=== PATIENT | female | born 1970 | race Caucasian/White ===

== ENCOUNTER 2022-09-26 08:15 | Outpatient (OUT) | payer OTHER, SELFPAY ==
--- NOTE | 2022-09-26 08:45 | MM_ITS ---
Patient: PRASANTH THOMAS Exam Date: 09/26/2022 : 1970 Gender:F Ordering : DR JEANETTE WEEMS M.D. Admission #: [id number] Family : Order #: [id number] CLICK HERE TO VIEW EXAM RADIOLOGY REPORT PROCEDURE: MM TOMOSYNTHESIS SCREENING BI COMPARISON: MG MAMM SCREEN 3D DASHA CAD, 07/19/2021. MG MAMM SCREEN DASHA W CAD, 01/21/2020. MG MAMM SCREEN DASHA W CAD, 01/15/2019. MG MAMM DASHA SCRN W CAD DIG, 10/03/2005. INDICATIONS: Screening Calculator Name NCI Breast Cancer Risk Assessment Tool 5 Year Breast Cancer Risk 1.90% Lifetime Breast Cancer Risk 15.30% Personal Breast Cancer No Personal Ovarian Cancer No Treatments None Family Cancers Aunt-maternal with breast cancer at age 50; Aunt-maternal with bone cancer at age 60. LOCATION: [facility] BREAST COMPOSITION: Scattered areas fibroglandular density. FINDINGS: DIAGNOSTIC CATEGORY 2--BENIGN FINDING: RIGHT BREAST: No significant suspicious finding. Stable chronic mass within lower-outer quadrant with adjacent biopsy marker clip. No significant change has occurred. LEFT BREAST: No significant suspicious finding. No significant change has occurred. RECOMMENDATIONS: ROUTINE MAMMOGRAM AND CLINICAL EVALUATION IN 12 MONTHS. PLEASE NOTE: A NORMAL MAMMOGRAM DOES NOT EXCLUDE THE POSSIBILITY OF BREAST CANCER. A CLINICALLY SUSPICIOUS PALPABLE LUMP SHOULD BE BIOPSIED. Dictated by: Sunday Butt M.D. on 09/26/2022 at 11:40 Approved by: Sunday Butt M.D. on 09/26/2022 at 11:49
== END 2022-09-26 08:16 | disposition home or self-care (01) ==
LOC: MAMMO 08:15
PROVIDERS: PCP Internal Medicine; Visit Provider Internal Medicine
DX: Z12.31 Encounter for screening mammogram for malignant neoplasm of breast (principal); Z80.3 Family history of malignant neoplasm of breast; N63.13 Unspecified lump in the right breast, lower outer quadrant
CPT/HCPCS: 77063; 77067

== ENCOUNTER 2023-09-29 08:27 | Outpatient (OUT) | payer OTHER, SELFPAY ==
--- NOTE | 2023-09-29 08:32 | MM_ITS ---
Patient Name: PRASANTH THOMAS MR#: [id number] : 1970 Exam Date: 09/29/2023 Ordering Doctor: DR JEANETTE WEEMS M.D. RADIOLOGY REPORT PROCEDURE: MM TOMOSYNTHESIS SCREENING BI COMPARISON: MM TOMOSYNTHESIS SCREENING BI, 09/26/2022. INDICATIONS: Screening Calculator Name NCI Breast Cancer Risk Assessment Tool 5 Year Breast Cancer Risk 2.00% Lifetime Breast Cancer Risk 15.00% Personal Breast Cancer No Personal Ovarian Cancer No Treatments None Family Cancers Aunt-maternal with breast cancer at age 50; Aunt-maternal with bone cancer at age 60. LOCATION: [facility] BREAST COMPOSITION: There are scattered areas of fibroglandular density. FINDINGS: DIAGNOSTIC CATEGORY 2--BENIGN FINDING. NO CHANGE FROM COMPARISON. Scattered benign-appearing nodules are present. Scattered benign-appearing calcifications are present. Scattered benign-appearing lymph nodes are present. RIGHT BREAST: No significant suspicious finding. Stable focal asymmetry lower outer quadrant, anterior breast, previously biopsied with a stable micro clip marker LEFT BREAST: No significant suspicious finding. Stable micro clip marker lower outer quadrant, mid breast. RECOMMENDATIONS: ROUTINE MAMMOGRAM AND CLINICAL EVALUATION IN 12 MONTHS. PLEASE NOTE: A NORMAL MAMMOGRAM DOES NOT EXCLUDE THE POSSIBILITY OF BREAST CANCER. A CLINICALLY SUSPICIOUS PALPABLE LUMP SHOULD BE BIOPSIED. Dictated by: Tommie Hung MD on 10/02/2023 at 07:50 Approved by: Tommie Hung MD on 10/02/2023 at 07:53
== END 2023-09-29 08:28 | disposition home or self-care (01) ==
LOC: MAMMO 08:28
PROVIDERS: PCP Internal Medicine; Visit Provider Internal Medicine
DX: Z12.31 Encounter for screening mammogram for malignant neoplasm of breast (principal); Z80.3 Family history of malignant neoplasm of breast; Z80.8 Family history of malignant neoplasm of other organs or systems
CPT/HCPCS: 77063; 77067

== ENCOUNTER 2024-11-01 09:12 | Emergency (ER) | payer OTHER, SELFPAY ==
[2024-11-01 09:19] VITALS: BP 137/67; PULSE 78; TEMP 36.6; O2SAT 97; BMI 53.1
--- NOTE | 2024-11-01 09:19 | XR_ITS ---
The [address] [address] Patient Name: PRASANTH THOMAS MRN: [id number] date: 1970 Sex: F Assigned Patient Location: ED.MAIN Current Patient Location: ED.MAIN Accession/Order Number: [id number] Exam Date: 11/01/2024 09:41 Report Date: 11/01/2024 09:43 At the request of: RAY LANDRUM MD Procedure: XR shoulder RT min 2V XR shoulder RT min 2V 11/01/2024 9:32 AM SIGNS AND SYMPTOMS: Right shoulder pain after fall PROTOCOL: Frontal and scapular Y views of the right shoulder COMPARISON: None FINDINGS: There is a displaced fracture of the humeral head extending from the base of the greater tuberosity through the superior articular surface. The fracture fragment is dorsally and posteriorly subluxed by approximately 5 mm. Mild hypertrophic changes are noted in the acromioclavicular joint. There is no evidence of dislocation. Visualized right hemithorax is grossly intact. XR/XR shoulder RT min 2V IMPRESSION: Mildly displaced fracture of the humeral head traversing the greater tuberosity and superior articular surface. No dislocation. Impression dictated by: Jani Mayen M.D. 11/01/2024 9:43 AM Dictation Location: [place] [address] Electronically authenticated by: [id number] Y Date: 11/01/2024 09:43
[2024-11-01] MEDS: MORPHINE SULFATE 2 MG/ML SYRINGE IV ×2 (09:49→10:25)
--- NOTE | 2024-11-01 09:50 | ED.GENADUL1 ---
HPI HPI - General Adult General Chief complaint: Extremity Injury, Upper Stated complaint: UPPER EXTREMITY INJURY - [facility] Time Seen by Provider: 11/01/24 09:17 Source: patient Mode of arrival: walk-in Limitations: no limitations History of Present Illness HPI narrative: 54-year-old female presented to the emergency department for pain in her right shoulder. She fell at work just before coming into the emergency department onto her outstretched arm. No injury to the wrist or elbow. She points to the shoulder to indicate where her pain is. She did not hit her head. She is right-handed. Related Data Home Medications ?Medication ?Instructions ?Recorded ?Confirmed atorvastatin 20 mg tablet 20 mg PO DAILY 11/01/24 11/01/24 celecoxib 100 mg capsule 100 mg PO BID 11/01/24 11/01/24 ferrous sulfate 325 mg (65 mg 325 mg PO DAILY 11/01/24 11/01/24 iron) tablet glipizide 5 mg tablet 5 mg PO BID 11/01/24 11/01/24 insulin glargine-yfgn 100 unit/mL 20 unit subcut DAILY 11/01/24 11/01/24 subcutaneous solution levothyroxine 200 mcg tablet 200 mcg PO DAILY 11/01/24 11/01/24 metformin 500 mg tablet,extended 500 mg PO BID 11/01/24 11/01/24 release 24 hr semaglutide 0.25 mg or 0.5 mg (2 1 mg subcut QWEEK 11/01/24 11/01/24 mg/3 mL) subcutaneous pen injector (Ozempic) Previous Rx's ?Medication ?Instructions ?Recorded hydrocodone 5 mg-acetaminophen 325 1 tab PO Q6H PRN pain 5 days #20 11/01/24 mg tablet tabs Allergies Allergy/AdvReac Type Severity Reaction Status Date / Time No Known Drug Allergies Allergy Verified 11/01/24 09:19 Opioid HPI Opioid Management Most Recent Opioid Data: Last Pain Scale 8 Today, 09:49 Last MAR Pain Assessment Today, 09:49 Review of Systems ROS Narrative A ten point review of systems is negative except as noted above. PFSH PFSH Social History Little interest or pleasure in doing things: not at all Feeling down, depressed, or hopeless: not at all Exam Narrative Exam Narrative: Nurses note and vital signs reviewed and patient is not hypoxic. General: The patient appears in no acute distress but is uncomfortable. Skin: Warm, dry, no pallor noted. There is no rash noted. Head: Normocephalic, atraumatic Eye: Normal conjunctiva, no drainage Ears, Nose, Mouth, and Throat: oral mucosa is moist. Nares patent. Cardiovascular: Regular Rate and Rhythm Respiratory: Patient is in no distress, no accessory muscle use, lungs are clear to auscultation, no wheezing, rales or rhonchi Back: non-tender GI: Soft and nontender Musculoskeletal: The right wrist and elbow are nontender. Radial pulse 2+ and fingers have full range of motion. She has no obvious deformity of the right shoulder. Neurological: A&O, normal speech Psychiatric: Cooperative Constitutional Vital Signs, click to edit/add: Last Vital Signs Temp 98 F 11/01/24 09:19 Pulse 78 11/01/24 09:19 Resp 20 11/01/24 09:19 BP 137/67 11/01/24 09:19 Pulse Ox 97 11/01/24 09:19 O2 Del Method Room Air 11/01/24 09:19 Course Vital Signs Vital signs: Vital Signs Temperature 98 F 11/01/24 09:19 Pulse Rate 78 11/01/24 09:19 Respiratory Rate 20 11/01/24 09:19 Blood Pressure 137/67 11/01/24 09:19 Pulse Oximetry 97 11/01/24 09:19 Oxygen Delivery Method Room Air 11/01/24 09:19 Temperature 98 F 11/01/24 09:19 Pulse Rate 78 11/01/24 09:19 Respiratory Rate 20 11/01/24 09:19 Blood Pressure 137/67 11/01/24 09:19 Pulse Oximetry 97 11/01/24 09:19 Oxygen Delivery Method Room Air 11/01/24 09:19 Medical Decision Making MDM Narrative Medical decision making narrative: Proximal humeral fracture is identified. Sling applied, application checked by me and found to be appropriate, she is neurovascular intact. She has a preferred orthopedist, Dr Peraza. She was given IV morphine here and prescribed [place]. Treatment diagnosis and follow-up were discussed with the patient. Differential Diagnosis Differential Diagnosis: Shoulder sprain, shoulder fracture, shoulder dislocation Imaging Data Right shoulder: Radiologist's impression: ITS Impressions Shoulder X-Ray 11/01/24 09:19 IMPRESSION: Mildly displaced fracture of the humeral head traversing the greater tuberosity and superior articular surface. No dislocation. Impression dictated by: Jani Mayen M.D. 11/01/2024 9:43 AM [facility] by: [id number] Y Date: 11/01/2024 09:43 Discharge Plan Discharge Chief Complaint: Extremity Injury, Upper Clinical Impression: Shoulder fracture, right Patient Disposition: Home, Self-Care Time of Disposition Decision: 09:47 Condition: Good Mode of Transportation: Private Vehicle Prescriptions / Home Meds: New hydrocodone-acetaminophen 5-325 mg tablet 1 tab PO Q6H PRN (Reason: pain) 5 Days Qty: 20 0RF No Action atorvastatin 20 mg tablet 20 mg PO DAILY celecoxib 100 mg capsule 100 mg PO BID ferrous sulfate 325 mg (65 mg iron) tablet 325 mg PO DAILY glipizide 5 mg tablet 5 mg PO BID insulin glargine-yfgn 100 unit/mL solution 20 unit SUBCUT DAILY levothyroxine 200 mcg tablet 200 mcg PO DAILY metformin 500 mg tablet extended release 24 hr 500 mg PO BID Ozempic 0.25 mg or 0.5 mg (2 mg/3 mL) pen injector 1 mg SUBCUT QWEEK Print Language: [place] Instructions: Proximal Humerus Fracture (ED) Additional Instructions: Follow-up with Dr. Peraza or Dr. Lopez. Call today for an appointment. Referrals: JEANETTE WEEMS [Primary Care Provider, Internal Medicine] - 1 week
== END 2024-11-01 10:51 | disposition home or self-care (01) ==
PROVIDERS: Emergency Provider Emergency Medicine; PCP Internal Medicine
DX: S42.251A Displaced fracture of greater tuberosity of right humerus, initial encounter for closed fracture (principal); W18.30XA Fall on same level, unspecified, initial encounter; M25.511 Pain in right shoulder
CPT/HCPCS: 29515; 73030; 96374; 96376; 99284; J2270

== ENCOUNTER 2025-03-13 13:56 | Outpatient (OUT) | payer OTHER, SELFPAY ==
--- NOTE | 2025-03-13 14:00 | MM_ITS ---
Patient Name: PRASANTH THOMAS MR#: [id number] : 1970 Exam Date: 03/13/2025 Ordering Doctor: DR JEANETTE WEEMS M.D. RADIOLOGY REPORT PROCEDURE: MM TOMOSYNTHESIS SCREENING BI COMPARISON: MM TOMOSYNTHESIS SCREENING BI, 09/29/2023. MM TOMOSYNTHESIS SCREENING BI, 09/26/2022. MG MAMM SCREEN 3D DASHA CAD, 07/19/2021. MG MAMM DASHA SCRN W CAD DIG, 10/03/2005. INDICATIONS: Screening Calculator Name NCI Breast Cancer Risk Assessment Tool 5 Year Breast Cancer Risk 2.10% Lifetime Breast Cancer Risk 14.80% Personal Breast Cancer No Personal Ovarian Cancer No Treatments None Family Cancers Aunt-maternal with breast cancer at age 50; Aunt-maternal with bone cancer at age 60. LOCATION: [facility] BREAST COMPOSITION: There are scattered areas of fibroglandular density. FINDINGS: RIGHT BREAST: No significant suspicious finding. LEFT BREAST: No significant suspicious finding. DIAGNOSTIC CATEGORY 1--NEGATIVE. RECOMMENDATIONS: ROUTINE MAMMOGRAM AND CLINICAL EVALUATION IN 12 MONTHS. Dictated by: Chucho Blake DO on 03/14/2025 at 08:19 Approved by: Chucho Blake DO on 03/14/2025 at 08:20
== END 2025-03-13 13:57 | disposition home or self-care (01) ==
LOC: MAMMO 13:56
PROVIDERS: PCP Internal Medicine; Visit Provider Internal Medicine
DX: Z12.31 Encounter for screening mammogram for malignant neoplasm of breast (principal); Z80.3 Family history of malignant neoplasm of breast; Z80.8 Family history of malignant neoplasm of other organs or systems
CPT/HCPCS: 77063; 77067